=== PATIENT | male | born 1965 | race Caucasian/White ===

== ENCOUNTER 2022-04-21 21:28 | Emergency (ER) | payer OTHER, SELFPAY ==
--- NOTE | 2022-04-21 21:54 | PC.NURSE ---
Pt yelling and swearing, rolling around on [facility], unwilling to answer basic intake questions. Insisting that he urgently needs his suprapubic cath changed. States that he's had his cath for 5+ years, the tube is clogged, he has it changed every 15 [address] at [facility] Dr Cole notified, verbal order received to replace catheter, foul smelling urine immediately obtained, pt expressed immediate relief.
--- NOTE | 2022-04-21 22:04 | ED_ITS ---
HPI - Male Genitourinary General Chief complaint: Urogenital-Male Stated complaint: cath. change Time Seen by Provider: 04/21/22 22:04 Source: patient Mode of arrival: Ambulatory Limitations: no limitations History of Present Illness HPI Narrative: 57-year-old male with longstanding indwelling suprapubic catheter for the past 5 years. Patient states it is blocked he has not been able to drain urine for at least 4 hours and presents in significant discomfort. Patient denies fevers or chills, no chest pain, no shortness of breath. After the catheter was changed out he has significant improvement in his symptoms. Patient denies any back or flank pain. Patient states has had blockages in the past. He is supposed to get surgery at [facility] this coming week for additional repairs. Patient defers any lab work today. Related Data Previous Rx's Medication Instructions Recorded ciprofloxacin HCl 500 mg tablet 500 mg PO Q12H #20 tabs 04/21/22 Allergies Allergy/AdvReac Type Severity Reaction Status Date / Time No Known Drug Allergies Allergy Verified 04/21/22 22:42 Review of Systems Review of Systems ROS Unobtainable: All systems reviewed & are unremarkable except as noted in HPI and below Patient History Social History Smoking Status: Never smoker Exam Narrative Exam Narrative: GENERAL: Alert and oriented x three, male in moderate to severe distress. HEENT: Head normocephalic, atraumatic, EOMI, pupils reactive, face symmetric, moist mucous membranes NECK: Supple, full range of motion CARDIOVASCULAR: Regular rate and rhythm without murmurs, rubs or gallops. RESPIRATORY: Breath sounds equal bilaterally, no wheezes rales or rhonchi. ABDOMEN: Soft, distended. Catheter not draining any urine. Normoactive bowel sounds all 4 quadrants. No guarding or rebound, rigidity, no mass. Patient significantly improved after suprapubic catheter was switched out and is draining opaque yellow urine with sedimentation. : No CVA tenderness EXTREMITIES: Normal range of motion, no clubbing or edema. Neurovascularly intact NEUROLOGICAL: Cranial nerves II through XII grossly intact. Moving all extremities SKIN: Warm, dry, no petechiae, no rashes or lesions. Initial Vital Signs Initial Vital Signs: Vital Signs Temperature 97.4 F L 04/21/22 22:07 Pulse Rate 65 09/24/22 22:07 Respiratory Rate 18 04/21/22 22:07 Blood Pressure 130/80 04/21/22 22:07 Pulse Oximetry 98 04/21/22 22:07 Oxygen Delivery Method 04/21/22 22:07 Course Orders Ordered: ED Orders 04/21/22 21:45 Urinalysis and Microscopic Stat Urine Culture Stat Discontinued Medications Ciprofloxacin (Ciprofloxacin 250 Mg Tablet) 500 mg PO NOW ONE Stop: 04/21/22 22:39 Last Admin: 04/21/22 22:42 Dose: 500 mg Documented By: GODFREY Reevaluation(s) Reevaluation #1: Patient feels significantly better. Discussed starting antibiotic his family at bedside states he is allergic to Bactrim. No known resistance with urine infections in the past. Suspect colonization but urine does appear quite cloudy. Time: 22:38 Vital Signs Vital signs: Vital Signs - 8 hr 04/21/22 22:07 Temperature 97.4 F L Pulse Rate 65 Respiratory Rate 18 Blood Pressure 130/80 Pulse Oximetry 98 Oxygen Delivery Method Room Air MDM - Male Genitourinary Lab Data Labs: Lab Results 04/21/22 Range/Units 21:45 Urine Color Yellow Urine Appearance Cloudy Urine pH 7.5 (4.5-8.0) Ur Specific [place] 1.015 (1.000-1.035) Urine Protein 2+ H (Negative) Urine Glucose (UA) Negative (Negative) g/dL Urine Ketones Negative (NEGATIVE) Urine Occult Blood 3+ H (Negative) Urine Nitrate Negative (Negative) Urine Bilirubin Negative (NEGATIVE) Urine Urobilinogen 0.2 (0.2) E.U./dL Ur Leukocyte Esterase 3+ H (NEGATIVE) Urine RBC 1-5/hpf (0-5/HPF) Urine WBC 30-100/hpf H (0-5/HPF) Urine Bacteria Many (>30) H (None) Ur Culture Indicated? Specimen cultured MDM Narrative Medical decision making narrative: This is a 57-year-old male with blockage of his suprapubic catheter changed out here in the emergency department had significant improvement in symptoms. He deferred any lab work or checking his renal function today states it was only about 4 hours and it was blocked. Urine is suspicious for infection may be colonization but he had quite a bit of sediment changes to the urine so was started on oral antibiotic. He does not appear septic he has not had any systemic symptoms otherwise. Return precautions discussed. Discharge Plan Departure Patient Disposition: Home Clinical Impression: Blocked suprapubic catheter Instructions: DI for Urinary Tract Infection (UTI) Activity Restrictions/Additional Instructions: Your urine does show signs of infection. Your catheter was changed out today as well. Please start antibiotics and take them until completely gone. Prescription sent to [facility] in [place]. Please return for fevers, new or worsening pain, inability to drain urine catheter, persistent vomiting, new abdominal back or flank pain or other new or concerning changes. Prescriptions: New ciprofloxacin HCl 500 mg tablet 500 mg PO Q12H Qty: 20 0RF Visit Report Forms: Patient Portal/API
[2022-04-21 22:07] VITALS: BP 130/80; PULSE 65; RESP 18; TEMP 36.3; O2SAT 98; BMI 21.1
[2022-04-21 22:11] LABS: Bilirubin Urine UA NEGATIVE (NEGATIVE); Color Urine UA YELLOW; Glucose Urine UA NEGATIVE (Negative); Ketones Urine UA NEGATIVE (NEGATIVE); Leukocyte Esterase Urine UA 3+ (NEGATIVE); Nitrite Urine UA NEGATIVE (Negative); Occult Blood Urine UA 3+ (Negative); Protein Urine UA 2+ (Negative); Specific Gravity Urine UA 1.015 (1.000-1.035); Urobilinogen Urine UA 0.2 E.U./dL (0.2); pH Urine UA 7.5 (4.5-8.0)
[2022-04-21 22:16] LABS: Appearance Urine UA Cloudy
[2022-04-21 22:21] LABS: Bacteria Urine Many (>30); Culture Indicated Urine Specimen Cultured; RBC Urine 1-5/HPF (0-5/HPF); WBC Urine 30-100/HPF (0-5/HPF)
[2022-04-21] MEDS: CIPROFLOXACIN 250 MG TABLET 500 MG PO (22:42)
--- NOTE | 2022-04-22 13:39 | PC.NURSE ---
pt called requested his prescription be sent to [facility] instead of [facility], they are closed on sundays.
== END 2022-04-21 22:56 | disposition home or self-care (01) ==
PROVIDERS: Emergency Provider Emergency Medicine
DX: T83.090A Other mechanical complication of cystostomy catheter, initial encounter (principal)
CPT/HCPCS: 81001; 87077; 87086; 87186; 99283

== ENCOUNTER → 2022-07-31 10:57 | Outpatient (CLI) | payer OTHER, SELFPAY ==
[2022-07-31 11:27] LABS: Add Manual Diff / Slide Review NO; Basophils Absolute Auto 100 /uL (0-100); Basophils Percent Auto 0.8 % (0-2); Eosinophils Absolute Auto 100 /uL (0-450); Hematocrit 38.8 % (41-53); Hemoglobin 12.5 g/dL (13.5-17.5); Lymphocytes Absolute Auto 1200 /uL (1100-4500); Mean Corpuscular HGB Conc 32.2 % (30-36); Mean Corpuscular Hemoglobin 26.4 PG (26-34); Mean Corpuscular Volume 82.1 fL (80-100); Monocytes Absolute Auto 400 /uL (0-900); Monocytes Percent Auto 5.6 % (3-14); Neutrophils Absolute Auto 4600 /uL (1500-7000); Neutrophils Percent Auto 72.6 % (50-75); Platelet Count 143 X10^3/uL (150-400); Red Blood Cell Count 4.73 X10^6/uL (4.5-5.9); Red Cell Distribution Width 15.2 % (11.6-14.8); White Blood Cell Count 6.3 X10^3/uL (4.5-11.0)
[2022-07-31 11:35] LABS: Hemoglobin A1C% w Est Avg Glu 5.1 % (4.0-6.0)
[2022-07-31 11:50] LABS: Alanine Aminotransferase 19 IU/L (<50); Albumin 4.2 g/dL (3.5-5.0); Albumin Globulin Ratio 1.4 (1.0-2.8); Alkaline Phosphatase 89 U/L (38-126); Aspartate Aminotransferase 22 IU/L (17-59); BUN Creatinine Ratio 17.6 (6-22); Bilirubin Total 0.2 mg/dL (0.2-1.3); Blood Urea Nitrogen 16 mg/dL (9-20); Calcium 8.8 mg/dL (8.4-10.2); Carbon Dioxide 30 mmol/L (22-32); Chloride 101 mmol/L (98-107); Cholesterol 187 mg/dL (140-199); Estimated Glomerular Filt Rate > 60 mL/min (>60); Globulin 3.1 g/dL (1.7-4.1); Glucose 113 mg/dL (70-100); HDL Cholesterol 75 mg/dL (40-60); HEMOLYSIS < 15 (0-50); LDL Cholesterol Calculated 88 mg/dL (<100); Potassium 3.8 mmol/L (3.4-5.1); Sodium 139 mmol/L (137-145); Total Protein 7.3 g/dL (6.3-8.2); Triglycerides 122 mg/dL (35-150)
[2022-07-31 12:40] LABS: Hep C Virus Ab w/Reflex Quant NEGATIVE s/c (NEGATIVE)
== END ==
PROVIDERS: PCP Family Medicine; Referring Provider Family Medicine; Visit Provider Family Medicine
DX: Z00.00 Encounter for general adult medical examination without abnormal findings (principal); S37.20XA Unspecified injury of bladder, initial encounter; Z13.1 Encounter for screening for diabetes mellitus; Z13.220 Encounter for screening for lipoid disorders; Z93.59 Other cystostomy status; Z11.59 Encounter for screening for other viral diseases
CPT/HCPCS: 36415; 80053; 80061; 83036; 85025; 86803